=== PATIENT | female | born 1960 | race Caucasian/White ===

== ENCOUNTER → 2020-10-26 | Outpatient (CLI) | payer BC | END | disposition home or self-care (01) | LOC: LABWHC1 14:50 | PROVIDERS: ATTEND Emergency Medicine | DX: Z20.822 Contact with and (suspected) exposure to COVID-19 (principal) | CPT/HCPCS: U0003; U0005 ==

== ENCOUNTER → 2022-03-06 | Outpatient (CLI) | payer BC ==
[2022-03-06 15:17] LABS: Basophils # (A) 0.03 X 10*3/uL (0.00-0.10); Basophils % (A) 0.6 %; Eosinophils # (A) 0.05 X 10*3/uL (0.04-0.35); Eosinophils % (A) 0.9 %; HCT 38.1 % (37.2-46.3); HGB 11.9 g/dL (12.0-15.0); Immature Grans, Automated 0.4 %; Lymphocytes % (A) 31.7 %; MCH 29.5 pg (27.0-32.0); MCHC 31.2 g/dL (32.0-37.0); MCV 94.3 fL (80.0-97.0); NRBC Per 100 WBC 0 /100 WBCS (0.0-0.0); Neutrophils # (A) 2.87 X 10*3/uL (1.80-7.70); Neutrophils % (A) 53.4 %; Platelet Count 282 X 10*3/uL (140-440); RBC 4.04 X 10*6/uL (4.10-5.20); RDW 13.2 % (11.5-14.5); WBC 5.37 X 10*3/uL (4.50-10.00)
[2022-03-06 15:33] LABS: Anion Gap 9.9 mmol/L (10.00-18.00); BUN/Creat Ratio 25.73 Ratio (12.00-20.00); Blood Urea Nitrogen 14.9 mg/dL (9.0-27.0); Calcium 9.1 mg/dL (8.7-10.3); Carbon Dioxide 27.5 mmol/L (20.0-27.5); Potassium 3.8 mmol/L (3.5-5.5)
== END | disposition home or self-care (01) ==
LOC: LABPAT 09:50
PROVIDERS: ATTEND Orthopaedic Surgery
DX: Z01.812 Encounter for preprocedural laboratory examination (principal); M17.11 Unilateral primary osteoarthritis, right knee; Z22.322 Carrier or suspected carrier of Methicillin resistant Staphylococcus aureus
CPT/HCPCS: 80048; 85025; 87070; 93005

== ENCOUNTER 2022-03-19 08:22 | Day surgery (SDC) | payer BC ==
[2022-03-15 11:06] VITALS: BMI 18.3
--- NOTE | 2022-03-18 11:55 | HP ---
HISTORY AND PHYSICAL REASON FOR ADMISSION: Surgery scheduled for 03/19/2022 HISTORY OF PRESENT ILLNESS: Molly Mcnally is a 61-year-old patient seen with symptomatic right knee osteoarthritis. We discussed options for treatment. She elected to proceed with right total knee arthroplasty. Consent obtained. PAST MEDICAL HISTORY: Osteoarthritis. PAST SURGICAL HISTORY: Ankle surgery. DAILY MEDICATIONS: None. ALLERGIES: PENICILLIN. SOCIAL HISTORY: She denies tobacco use. PHYSICAL EVALUATION OF THE RIGHT KNEE: Range of motion is -1/2-115. Mild effusion. Tenderness lateral joint line crepitus, lateral patellofemoral compartments with range of motion. There is some pain with patellofemoral compression. Ligaments stable. Hip rotation without pain. Distal neurovascular exam is intact. RADIOGRAPHS: Radiographs of the right knee revealed severe osteoarthritic changes. IMPRESSION: Right knee osteoarthritis. PLAN: Right total knee arthroplasty. Surgery scheduled for 03/19/2022. MMODL / IJN: [id number] /
[~2022-03-19 08:22] MED LIST: ACETAMINOPHEN TAB 500 MG TAB PO PRN; TRANEXAMIC ACID IN NACL,ISO-OS 1,000 MG in SALINE 1 100ML.BAG IVPB PRN
[2022-03-19 09:01] VITALS: TEMP 97.8
[2022-03-19] MEDS ORDERED: LACTATED RINGERS 1,000 ML IV ONE ×2 (09:04→11:25)
[2022-03-19] MEDS ORDERED: SCOPOLAMINE 1 MG/72 HR PATCH TRANSDERM ONE (09:05)
[2022-03-19] MEDS ORDERED: DEXAMETHASONE SOD PHOSPHATE 4 MG/ML 1 ML VIAL IVP ONE (09:05)
[2022-03-19] MEDS ORDERED: ONDANSETRON 4 MG/2 ML VIAL IVP ONE (09:05)
[2022-03-19] MEDS ORDERED: LIDOCAINE 1% (10MG/ML) FOR IV START INTRADERMA ONE (09:05)
[2022-03-19] MEDS ORDERED: ACETAMINOPHEN TAB 500 MG TAB ONE (09:10)
[2022-03-19] MEDS ORDERED: ONDANSETRON 4 MG/2 ML VIAL ONE (09:10)
[2022-03-19] MEDS ORDERED: MIDAZOLAM 2 MG/2 ML VIAL IVP ONE (09:30)
[2022-03-19] MEDS ORDERED: LIDOCAINE 2% INJ 20 MG/ML (2 ML VIAL) ONE (10:06)
[2022-03-19] MEDS ORDERED: HYDROmorphone (PF) 1 MG/ML ONE (10:06)
[2022-03-19] MEDS ORDERED: fentaNYL (PF) 50 MCG/ML 2 ML AMP ONE (10:06)
[2022-03-19] MEDS ORDERED: TRANEXAMIC ACID IN NACL,ISO-OS 1,000 MG/100 ML BAG ONE (10:06)
[2022-03-19] MEDS ORDERED: MIDAZOLAM 2 MG/2 ML VIAL ONE (10:06)
[2022-03-19] MEDS ORDERED: PROPOFOL 10 MG/ML 20 ML VIAL IV ONE (10:06)
[2022-03-19] MEDS ORDERED: ROPIVACAINE 5 MG/ML 30 ML VIAL ONE (10:06)
--- NOTE | 2022-03-19 10:30 | P.ANPRN ---
Procedure Note - Anesthesia - Nerve Block Performed Right Adductor Canal Infusion Time Out Performed: Yes ([id number]) Date of Procedure: 03/19/22 Procedure Start Time: Procedure Stop Time: :38 Location of Patient: PreOp Indication: Acute Post-Operative Pain, Dx/Pain Location (Rt knee), Requested by Surgeon Specifically requested for management of pain by DrKimmie: Te Rivers Sedation Type: Sedate with meaningful contact maintained Preparation: Sterile Prep, Sterile Dressing Position: Supine Catheter Depth at Skin (cm): 6 Catheter: Indwelling Needle Types: Pajunk Needle Gauge: 18 Ultrasound used to visualize needle placement: Yes Ultrasound used to observe medication spread: Yes Injectate: 0.5% Ropivacaine (see comment for volume) (15 cc) Blood Aspirated: No Pain Paresthesia on Injection Noted: No Resistance on Injection: Normal Image Stored and Saved: Yes Events: Uneventful and Well Tolerated Right iPack Single Time Out Performed: Yes Date of Procedure: 03/19/22 Location of Patient: PreOp Indication: Acute Post-Operative Pain, Dx/Pain Location (Rt Knee) Specifically requested for management of pain by Dr.: Te Rivers Sedation Type: Sedate with meaningful contact maintained Preparation: Sterile Prep Position: Left Lateral Catheter: None Needle Types: Pajunk Needle Gauge: 21 (100 mm) Ultrasound used to visualize needle placement: Yes Ultrasound used to observe medication spread: Yes Injectate: 0.5% Ropivacaine (see comment for volume) (15 cc) Blood Aspirated: No Pain Paresthesia on Injection Noted: No Resistance on Injection: Normal Image Stored and Saved: Yes Events: Uneventful and Well Tolerated
[2022-03-19] MEDS ORDERED: ceFAZolin 1,000 MG in SODIUM CHLORIDE 0.9% 1,000 ML IRRIGATION ONE (10:33)
[2022-03-19 10:39] LABS: INR 0.9 (<1.2); Prothrombin Time 10.2 sec (9.0-12.0)
[2022-03-19] MEDS ORDERED: HYDROmorphone 1 MG/ML 1 ML SYRINGE IVP PRN (11:25)
[2022-03-19] MEDS ORDERED: HYDROcodone/APAP 5-325MG 1 EACH TAB PO PRN (11:25)
[2022-03-19] MEDS ORDERED: ONDANSETRON 4 MG/2 ML VIAL IVP PRN (11:25)
[2022-03-19] MEDS ORDERED: NALOXONE 0.4 MG/ML 1 ML VIAL IV PRN (11:25)
[2022-03-19] MEDS ORDERED: HYDROcodone/APAP 7.5-325MG 1 EACH TAB PO PRN (11:25)
[2022-03-19] MEDS ORDERED: HYDROmorphone 0.5 MG/0.5 ML SYRINGE IVP PRN ×2 (11:25)
--- NOTE | 2022-03-19 11:25 | P.OP ---
Date of Procedure: 03/19/22 Preoperative Diagnosis: Right knee osteoarthritis Postoperative Diagnosis: Right knee osteoarthritis Procedure(s) Performed: Right total knee arthroplasty Implants: 1. Depuy attune size 4 narrow right cruciate retaining cemented femur 2. Depuy attune size 4 fixed bearing cemented tibial baseplate 3. Depuy attune size 4 fixed bearing cruciate retaining 7 mm polyethylene tibial insert 4. Depuy attune 35 mm all polyethylene cemented patella Anesthesia: GETA, regional (Adductor canal catheter, Ipack block) Surgeon: Te Rivers Manager Motor #1: Parminder Moore Estimated Blood Loss (ml): 40 Pathology: other (Bone) Condition: stable Disposition: PACU Indications for Procedure: 61-year-old patient seen with symptomatic right knee osteoarthritis. After treatment options were discussed, she elected to proceed with total knee arthroplasty. Operative Findings: See description of procedure Description of Procedure: Patient was taken to the operative suite after having an adductor canal catheter placed by the department of anesthesia after having an Ipack block performed by the department of anesthesia for postoperative pain management. Patient underwent a general anesthetic by the department of anesthesia. Patient was given preoperative IV intake antibiotics and TXA. A well-padded tourniquet was placed about the right lower extremity. The lower extremity was then prepped and draped in the normal sterile orthopedic fashion. The extremity was elevated, a tourniquet was insufflated to 300. A standard anterior incision was made sharply through skin. Dissection was taken down through the subcutaneous soft tissues down to the extensor mechanism. A medial arthrotomy was performed, patella was everted and knee was flexed. There was advanced osteoarthritis noted. I introduced my distal intramedullary femoral drill. I then introduced the distal femoral cutting jig. oP BROWN secured the cutting jig with 2 pins. I held retractors in position while Po BROWN performed the distal femoral resection through the guide area we now removed her distal femoral cutting guide. We now placed our 4-in-1 femoral cutting block and positioned a nd it was secured with 2 pins by Po BROWN while I held the block in position. The distal femoral finishing was now completed. A proximal tibial cutting guide was positioned. I held the guide in the appropriate position with both hands well Po BROWN inserted stabilizing pins into the guide. Proximal tibial cut was made. We now placed a trial femoral component into position, along with an appropriate size tibial tray and insert. We now took the knee through range of motion and had full extension good flexion and good overall soft tissue balance noted. The patella was everted and stabilized with 2 towel clips held by Po BROWN while I performed a flush with patellar quad tendon utilizing a fresh sawblade. We templated the patella, appropriate drill holes were made. An appropriate trial patella was positioned, knee was taken through full range of motion with the patella tracking very nicely. The trial patella was removed. Drill holes were made through the femoral component. All trial components were removed after marking off the appropriate rotation of the tibia. Retractors were now positioned along the proximal tibia. An appropriate keel punch was made with the appropriate size tibial guide by myself on Po BROWN assisted by holding retractors. At this point appropriate size implants were chosen and opened. The joint was irrigated copiously with pulse lavage mechanical irrigation. The posterior capsule was infiltrated with local analgesic. The wound was irrigated with pulse lavage mechanical irrigation. We mixed antibiotic methylmethacrylate. We placed the knee into flexion. We placed multiple retractors assisted by Po BROWN to expose the proximal tibia. Once the methyl methacrylate was ready, the tibial component was cemented into place removing any excess methylmethacrylate form by both myself and Po BROWN. The femoral component was cemented into place removing the removing any excess methylmethacrylate performed by both myself and Po BROWN. We then inserted the appropriate size polyethylene tibial insert. We made sure that it was locked into position. We took the knee into full extension, and then back in a flexion making sure we had removed any excess methylmethacrylate. The patellar component was then cemented down and secured with clamp. Excess methylmethacrylate removed. We kept the knee in full extension, patellar clamp in position until methylmethacrylate had hardened. Once it had hardened the patellar clamp was removed. The knee was taken through full range of motion. The patella tracked nicely. There was good soft tissue balancing. The tourniquet was now released. Additional hemostasis was achieved via electrocautery. A second gram of TXA was given. The wound again was irrigated with pulse lavage mechanical irrigation. The superficial soft tissues were infiltrated local analgesic. The extensor mechanism was repaired with Ethibond suture. We checked the repair with range of motion and it was stable. The subcutaneous soft tissues were repaired with Vicryl in layers. The skin was approximated with pernio/Dermabond. Sterile dressings were applied followed by loose web roll and Jack bandage. The patient was transferred to a bed, and taken to recovery in stable and satisfactory condition. Po BROWN assisted with this complex procedure.
[2022-03-19] MEDS ORDERED: ROPIVACAINE 0.2%-NS ON-Q PUMP 2 MG/ML EACH MISCELLANE ONE (12:16)
--- NOTE | 2022-03-19 12:17 | XR ---
EXAMINATION TYPE: XR knee limited RT DATE OF EXAM: 03/19/2022 COMPARISON: None HISTORY: Postop knee replacement TECHNIQUE: 2 view right knee FINDINGS: Tibial femoral components in place. No acute fractures or dislocations are evident. Postsur gical changes are within the soft tissues IMPRESSION: 1. No acute fractures post right knee replacement
[2022-03-19] MEDS ORDERED: LABETALOL 5 MG/ML VIAL MDV IVP ONE (12:40)
[2022-03-19] MEDS ORDERED: HYDROmorphone 0.5 MG/0.5 ML SYRINGE IVP ONE ×2 (12:53→13:05)
[2022-03-19] MEDS ORDERED: ROPIVACAINE 0.2%-NS ON-Q PUMP 1,090 MG, EMPTY PAIN BALL 1 EACH MISCELLANE PRN (13:19)
[2022-03-19 13:53] VITALS: RESP 18
[2022-03-19 14:48] VITALS: BP 138/86; PULSE 85
== END 2022-03-19 15:49 | disposition home health service (06) ==
LOC: OR 08:22
PROVIDERS: ATTEND Orthopaedic Surgery
DX: M17.11 Unilateral primary osteoarthritis, right knee (principal); G89.18 Other acute postprocedural pain; M06.9 Rheumatoid arthritis, unspecified; Z88.0 Allergy status to penicillin; Z88.6 Allergy status to analgesic agent; Z88.5 Allergy status to narcotic agent
CPT/HCPCS: 97110; 97161; 64999; 64448; 76942; 85610; 88300; 73560; 27447; C1776; C1713 ×2; J2250; J1100; J0690 ×2; J2405; J3010; J1170 ×2; J2795 ×2; J2704; J2001

== ENCOUNTER 2022-03-21 08:59 | Inpatient (IN) | payer BC ==
--- NOTE | 2022-03-21 09:41 | ED ---
General Adult HPI - General Chief complaint: Skin/Abscess/Foreign Body Stated complaint: blisters on feet Time Seen by Provider: 03/21/22 09:04 Source: patient, RN notes reviewed Mode of arrival: wheelchair Limitations: no limitations - History of Present Illness Initial comments: 61-year-old female presents emergency Department chief complaint of right leg swelling, blistering. Patient states she had right knee replacement 2 days ago. Patient states she went home same day states that she did have a compression sock But has not removed. Patient states she notices blistering she does have pain pump on her right leg. She states the pain is well-controlled. Patient denies any fevers or chills no other complaints. - Related Data Previous Rx's Medication Instructions Recorded Aspirin [Adult Low Dose Aspirin EC] 81 mg PO BID #60 tab 03/19/22 Docusate [Colace] 100 mg PO DAILY #30 capsule 03/19/22 HYDROcodone/APAP [[place] Elixir 15 ml PO Q6HR PRN 7 Days #420 ml 03/19/22 7.5-325Mg/15Ml] ondansetron HCL [Zofran] 8 mg PO Q12HR PRN #12 tab 03/19/22 Cephalexin [Keflex] 500 mg PO Q6HR 7 Days #28 cap 03/21/22 Allergies Allergy/AdvReac Type Severity Reaction Status Date / Time ibuprofen Allergy joint Verified 03/21/22 09:00 swelling Penicillins Allergy Rash/Hives Verified 03/21/22 09:00 hydrocodone AdvReac Nausea & Verified 03/21/22 09:00 Vomiting Review of Systems ROS Statement: Those systems with pertinent positive or pertinent negative responses have been documented in the HPI. ROS Other: All systems not noted in ROS Statement are negative. Past Medical History Past Medical History: Osteoarthritis (OA), Rheumatoid Arthritis (RA) Additional Past Medical History / Comment(s): states "has hole in nose and has freq nose bleeds with prior cauterization in recent past," osteoporosis History of Any Multi-Drug Resistant Organisms: None Reported Past Surgical History: Orthopedic Surgery Additional Past Surgical History / Comment(s): ORIF rt ankle, right total knee replacemnt Past Anesthesia/Blood Transfusion Reactions: No Reported Reaction Additional Past Anesthesia/Blood Transfusion Reaction / Comment(s): no hx blood transfusion Past Psychological History: Anxiety Smoking Status: Never smoker - Past Family History Mother Family Medical History: No Reported History General Exam Limitations: no limitations General appearance: alert, in no apparent distress Head exam: Present: atraumatic, normocephalic, normal inspection Eye exam: Present: normal appearance, PERRL, EOMI. Absent: scleral icterus, conjunctival injection, periorbital swelling Respiratory exam: Present: normal lung sounds bilaterally. Absent: respiratory distress, wheezes, rales, rhonchi, stridor Cardiovascular Exam: Present: regular rate, normal rhythm, normal heart sounds. Absent: systolic murmur, diastolic murmur, rubs, gallop, clicks Extremities exam: Present: other (Right knee there is moderate swelling of the knee, dressing is noted, Jack wrap which appears to be compressive. There is blistering, bullae noted of the lower right leg just superior to the ankle pulses were palpable) Course Vital Signs 03/21/22 09:00 Temperature 98.2 F Pulse Rate 76 Respiratory 18 Rate Blood Pressure 123/76 O2 Sat by Pulse 98 Oximetry - Reevaluation(s) Reevaluation #1: 03/21/22 09:40 Eye medially contact orthopedics on-call abiel moore for Dr. Rivers who evaluated the patient emergency departments recommended THE LEG HE WE'LL PRESCRIBE KEFLEX, DISCUSSED ELEVATION, COMPRESSION AND MOVED UP FOLLOW-UP APPOINTMENT. Medical Decision Making - Medical Decision Making 61-year-old female presented for right leg swelling and pain after surgery. Patient has really DVT I did discuss the case with jane maciel patient be admitted to medicine follow-up with orthopedics. Disposition Clinical Impression: Right leg DVT, S/P total knee arthroplasty Disposition: ADMITTED IP TO THIS HOSP Condition: Fair Additional Instructions: Orthopedic discharge instructions: 1. Elevate the extremity 247 2. Local wound to blisters ankle 3. Utilize compression sleeve to help with swelling 4. Take antibiotic as prescribed 5. Plan for [facility]-up at [facility], contact office with any questions Prescriptions: Cephalexin [Keflex] 500 mg PO Q6HR 7 Days #28 cap Is patient prescribed a controlled substance at d/c from ED?: No Referrals: Parminder Moore PAC [PHYSICIAN CELERY CUTTER] - 1 Week Time of Disposition: 12:28
--- NOTE | 2022-03-21 09:43 | P.CNOR ---
History of Present Illness - [facility] Consult date: 03/21/22 Consult reason: other (Right lower extremity blisters, recent right tka) History of present illness: Patient is a 61-year-old female who had recently undergone a right total knee arthroplasty by Dr. Rivers on 03/19/2022. Patient woke up this morning with significant blistering and foot Shinkle on the right lower extremity. Patient to the emergency room for further evaluation. I was contacted by the emergency room staff. I was able to examine the patient today at bedside in the emergency room. Patient denies any recent trauma or ankle. She states that she has not been elevating extremity very much or using the compression sleeve. The Jack bandage still remains in place over the right lower extremity. The On-Q ball remains in place. Patient denies any fevers or chills at this time. She denies any shortness of breath or chest pain. Home nursing team is scheduled patient later today. Review of Systems Constitutional: Reports as per HPI Past Medical History Past Medical History: Osteoarthritis (OA), Rheumatoid Arthritis (RA) Additional Past Medical History / Comment(s): states "has hole in nose and has freq nose bleeds with prior cauterization in recent past," osteoporosis History of Any Multi-Drug Resistant Organisms: None Reported Past Surgical History: Orthopedic Surgery Additional Past Surgical History / Comment(s): ORIF rt ankle, right total knee replacemnt Past Anesthesia/Blood Transfusion Reactions: No Reported Reaction Additional Past Anesthesia/Blood Transfusion Reaction / Comm: no hx blood transfusion Past Psychological History: Anxiety Smoking Status: Never smoker - Past Family History Mother Family Medical History: No Reported History Medications and Allergies Home Medications Medication Instructions Recorded Confirmed Type Aspirin [Adult Low Dose Aspirin EC] 81 mg PO BID #60 tab 03/19/22 Rx Docusate [Colace] 100 mg PO DAILY #30 capsule 03/19/22 Rx HYDROcodone/APAP [[place] Elixir 15 ml PO Q6HR PRN 7 Days #420 ml 03/19/22 Rx 7.5-325Mg/15Ml] ondansetron HCL [Zofran] 8 mg PO Q12HR PRN #12 tab 03/19/22 Rx Cephalexin [Keflex] 500 mg PO Q6HR 7 Days #28 cap 03/21/22 Rx Allergies Allergy/AdvReac Type Severity Reaction Status Date / Time ibuprofen Allergy joint Verified 03/21/22 09:00 swelling Penicillins Allergy Rash/Hives Verified 03/21/22 09:00 hydrocodone AdvReac Nausea & Verified 03/21/22 09:00 Vomiting Physical Examination Right lower extremity: Jack bandage was removed, the foam dressings in good position and condition. Minimal soft tissue swelling and ecchymosis present surrounding the knee. Anterior posterior compartments of the upper leg are soft near the on q ball pain catheter. Patient has generalized swelling in the lower extremity from the calf down to the foot/ankle. No significant tenderness is reproduced with palpation of the calf. Plantar flexion, dorsiflexion, EHL, FHL are intact. There is blistering noted on the medial and lateral aspects of the ankle near the medial and lateral malleolus. There is no purulence visualized. There is edema noted from the midshaft of the tibia/fibula down to the foot. Dorsalis pedis pulses 2+. Sensory exam to light touch is intact throughout the extremity Assessment and Plan Assessment: Right lower extremity blistering History of recent right total knee arthroplasty Plan: Discussed the case, list included physical exam findings with lengthening Dr. Rivers. No orthopedic intervention is recommended at this time. We will order a Doppler of the right lower extremity to rule out DVT Discussed wound care with patient at bedside, this including general wound care to the areas of blistering. We discussed icing and elevating techniques and use of the compression sleeve. Patient was instructed that if she is not up and moving to be lying flat with the foot elevated above the heart. Patient will continue with the aspirin 81 mg twice a day for DVT prophylaxis Keflex 500 mg 4 times a day for 7 days will be prescribed for prophylactic treatment Home therapy/nursing after discharge Patient was instructed to contact our office today in make an appointment for next week for recheck of the extremity. She was instructed to contact the office if he notices any acute changes to the right lower extremity. Time with Patient: Less than 30
--- NOTE | 2022-03-21 11:00 | US ---
EXAMINATION TYPE: US venous doppler duplex LE RT DATE OF EXAM: 03/21/2022 10:17 AM COMPARISON: NONE CLINICAL HISTORY: pain. Right knee replacement 03-19-22. Edema and pain right leg SIDE PERFORMED: right TECHNIQUE: The right lower extremity deep venous system is examined utilizing real time linear array sonography with graded compression, doppler sonography and color-flow sonography. VESSELS IMAGED: Common Femoral Vein Deep Femoral Vein Greater Saphenous Vein * Femoral Vein Popliteal Vein Small Saphenous Vein * Proximal Calf Veins (* superficial vessels) Right Leg: *positive for DVT right popliteal vein Noncompressibility of the distal right popliteal vein. The remaining veins demonstrate normal aleida sibility with normal flow and vascular waveforms. IMPRESSION: Right popliteal vein deep venous thrombosis. Findings called to and discussed with Dr. El Abdi at 10:57 AM on 03/21/2022.
[2022-03-21] MEDS ORDERED: HEPARIN SODIUM 1,000 UN/ML (10ML VL) IV ONE (12:26)
[2022-03-21] MEDS ORDERED: HEPARIN SODIUM 1,000 UN/ML (10ML VL) IV PRN (12:26)
[2022-03-21] MEDS ORDERED: NALOXONE 0.4 MG/ML 1 ML VIAL IV PRN (12:28)
--- NOTE | 2022-03-21 12:57 | P.HPIM ---
History of Present Illness Chief Complaint: Leg swelling Patient is a 61-year-old female with a past medical history significant for right knee arthroplasty on 03/19/2022 with orthopedic service. Patient presents to the hospital after complaining of right lower extremity swelling and blisters. 2 days. She denies any episodes of shortness of breath, chest pain or palpitations. The pain is currently rated 8 out of 10 and she is also noticed some blistering that has popped which is clear in color. Emergency medicine consult to internal medicine for admission and spoke with orthopedic service. Heparin drip was ordered unfortunately no blood work is available. I recommended to obtain hydration panel, CBC BMP prior to starting the heparin drip. Orthopedic service is aware of this. Past Medical History Past Medical History: Osteoarthritis (OA), Rheumatoid Arthritis (RA) Additional Past Medical History / Comment(s): states "has hole in nose and has freq nose bleeds with prior cauterization in recent past," osteoporosis History of Any Multi-Drug Resistant Organisms: None Reported Past Surgical History: Orthopedic Surgery Additional Past Surgical History / Comment(s): ORIF rt ankle, right total knee replacemnt Past Anesthesia/Blood Transfusion Reactions: No Reported Reaction Additional Past Anesthesia/Blood Transfusion Reaction / Comment(s): no hx blood transfusion Past Psychological History: Anxiety Smoking Status: Never smoker - Past Family History Mother Family Medical History: No Reported History Medications and Allergies Home Medications Medication Instructions Recorded Confirmed Type Aspirin [Adult Low Dose Aspirin EC] 81 mg PO BID #60 tab 03/19/22 Rx Docusate [Colace] 100 mg PO DAILY #30 capsule 03/19/22 Rx HYDROcodone/APAP [[place] Elixir 15 ml PO Q6HR PRN 7 Days #420 ml 03/19/22 Rx 7.5-325Mg/15Ml] ondansetron HCL [Zofran] 8 mg PO Q12HR PRN #12 tab 03/19/22 Rx Cephalexin [Keflex] 500 mg PO Q6HR 7 Days #28 cap 03/21/22 Rx Allergies Allergy/AdvReac Type Severity Reaction Status Date / Time ibuprofen Allergy joint Verified 03/21/22 09:00 swelling Penicillins Allergy Rash/Hives Verified 03/21/22 09:00 hydrocodone AdvReac Nausea & Verified 03/21/22 09:00 Vomiting Physical Exam Vitals: Vital Signs Temp Pulse Resp BP Pulse Ox 03/21/22 09:00 98.2 F 76 18 123/76 98 Intake and Output 03/20/22 03/21/22 03/21/22 22:59 06:59 14:59 Other: Weight 48.081 kg Gen. patient is awake alert oriented 3 Heart normal S1/S2 no murmurs Respiratory no wheezing or rhonchi appreciated Abdomen soft, nontender Extremity swelling noted in the right lower extremity with blisters in the medial aspect mainly few have ruptured clear Psych in good spirits Assessment and Plan Assessment: Assessment: #1 right lower extremity DVT provoked secondary to surgery #2 history of right knee arthroplasty 03/19/2022 Plan: -Patient admitted to medicine for close monitoring -Orthopedic service aware of the admission recommend internal medicine admission -No blood work available including CBC, Coreg ablation panel or BMP. Recommend obtaining this prior to starting heparin which has been ordered by ER -Right lower extremity Doppler reviewed suggesting right popliteal vein DVT -Due to prophylaxis patient will be started on heparin drip -Further recommendations from consulting team.
[2022-03-21 13:09] LABS: Basophils % (A) 0 %; Eosinophils % (A) 0 %; HCT 31.1 % (34.0-46.0); HGB 10.3 gm/dL (11.4-16.0); Lymphocytes # (A) 1.4 k/uL (1.0-4.8); Lymphocytes % (A) 15 %; MCH 31.4 pg (25.0-35.0); MCHC 33.1 g/dL (31.0-37.0); MCV 94.9 fL (80.0-100.0); Mean Platelet Volume 8.1; Monocytes # (A) 0.5 k/uL (0-1.0); Monocytes % (A) 6 %; Neutrophils # (A) 7.1 k/uL (1.3-7.7); Neutrophils % (A) 77 %; Platelet Count 172 k/uL (150-450); RBC 3.28 m/uL (3.80-5.40); RDW 13.2 % (11.5-15.5); WBC 9.2 k/uL (3.8-10.6)
[2022-03-21 13:28] LABS: ALT 12 U/L (4-34); AST 22 U/L (14-36); African American GFR (CKD) >90 (>60 ml/min/1.73 sqM); Albumin 3.6 g/dL (3.5-5.0); Alkaline Phosphatase 81 U/L (38-126); Anion Gap 6 mmol/L; Blood Urea Nitrogen 15 mg/dL (7-17); Calcium 8.1 mg/dL (8.4-10.2); Carbon Dioxide 27 mmol/L (22-30); Chloride 104 mmol/L (98-107); Glucose 105 mg/dL (74-99); Non-African American GFR(CKD) >90 (>60 ml/min/1.73 sqM); Potassium 3.8 mmol/L (3.5-5.1); Sodium 137 mmol/L (137-145); Total Bilirubin 0.7 mg/dL (0.2-1.3); Total Protein 6.3 g/dL (6.3-8.2)
[2022-03-21 13:41] LABS: INR 0.9 (<1.2); Prothrombin Time 9.6 sec (9.0-12.0)
[2022-03-21 14:06] LABS: Partial Thromboplastin Time 19.7 sec (22.0-30.0)
[2022-03-21] MEDS: HEPARIN SOD,PORK IN 0.45% NACL 25,000 UNIT in 0.45% NACL 1 250ML.BAG IV SCH (14:31)
[2022-03-21] MEDS: MORPHINE SULFATE 2 MG/ML SYRINGE IVP PRN ×2 (15:24→20:59)
[2022-03-22] MEDS: MORPHINE SULFATE 2 MG/ML SYRINGE IVP PRN ×2 (00:56→07:25)
[2022-03-22] MEDS: HYDROcodone/APAP 15 ML SOLUTION PO PRN ×2 (09:04→15:01)
[2022-03-22] MEDS ORDERED: MORPHINE SULFATE 2 MG/ML SYRINGE IVP PRN (09:08)
[2022-03-22 09:10] LABS: Basophils # (A) 0.03 X 10*3/uL (0.00-0.10); Basophils % (A) 0.3 %; Eosinophils # (A) 0.01 X 10*3/uL (0.04-0.35); Eosinophils % (A) 0.1 %; HCT 27.6 % (37.2-46.3); HGB 8.6 g/dL (12.0-15.0); Immature Grans, Automated 0.7 %; Lymphocytes # (A) 1.77 X 10*3/uL (0.90-5.00); Lymphocytes % (A) 18.3 %; MCH 29.5 pg (27.0-32.0); MCHC 31.2 g/dL (32.0-37.0); MCV 94.5 fL (80.0-97.0); Mean Platelet Volume 10.8 fL (9.5-12.2); Monocytes # (A) 0.92 X 10*3/uL (0.20-1.00); Monocytes % (A) 9.5 %; NRBC Per 100 WBC 0 /100 WBCS (0.0-0.0); Neutrophils # (A) 6.89 X 10*3/uL (1.80-7.70); Neutrophils % (A) 71.1 %; Platelet Count 170 X 10*3/uL (140-440); RBC 2.92 X 10*6/uL (4.10-5.20); RDW 13.1 % (11.5-14.5); WBC 9.69 X 10*3/uL (4.50-10.00)
--- NOTE | 2022-03-22 09:11 | P.PN ---
Subjective Patient was examined at bedside continues complain of intractable pain currently rates it a 10 out of 10. Patient also does have a emergent blister in the right lower extremity specifically on the medial aspect extending over to the lateral malleolus area. Patient denies any episodes of fever, chills, nausea or vomiting. Case discussed with RN present at bedside pending further evaluation by orthopedic service. Objective - Vital Signs Vital signs: Vital Signs Temp 98.5 F 03/22/22 08:00 Pulse 80 03/22/22 08:00 Resp 18 03/22/22 08:00 BP 151/74 03/22/22 08:00 Pulse Ox 97 03/22/22 08:00 FiO2 Intake & Output 03/21/22 03/22/22 03/22/22 18:59 06:59 18:59 Intake Total 540 Balance 540 Weight 48.081 kg Intake: Oral 540 Other: Voiding Method Toilet # Voids 2 1 - Exam Gen. patient is awake alert oriented 3 Heart normal S1/S2 no murmurs Respiratory no wheezing or rhonchi appreciated Abdomen soft, nontender Extremity swelling noted in the right lower extremity with blisters in the medial aspect mainly few have ruptured clear -There is a standing blister from the medial malleolus to the lateral enlarging in size not ruptured Psych in good spirits - Labs CBC & Chem 7: 03/21/22 12:55 03/21/22 12:55 Labs: Abnormal Lab Results - Last 24 Hours (Table) 03/21/22 03/21/22 03/21/22 Range/Units 12:55 12:55 12:55 RBC 3.28 L (3.80-5.40) m/uL Hgb 10.3 L (11.4-16.0) gm/dL Hct 31.1 L (34.0-46.0) % APTT 19.7 L (22.0-30.0) sec Creatinine 0.42 L (0.52-1.04) mg/dL Glucose 105 H (74-99) mg/dL Calcium 8.1 L (8.4-10.2) mg/dL 03/21/22 03/22/22 Range/Units 18:38 03:17 RBC (3.80-5.40) m/uL Hgb (11.4-16.0) gm/dL Hct (34.0-46.0) % APTT 56.1 H 46.1 H (22.0-30.0) sec Creatinine (0.52-1.04) mg/dL Glucose (74-99) mg/dL Calcium (8.4-10.2) mg/dL Assessment and Plan Assessment: Assessment: #1 right lower extremity DVT provoked secondary to surgery #2 history of right knee arthroplasty 03/19/2022 Plan: -Patient admitted to medicine for close monitoring -Orthopedic service aware of the admission recommend internal medicine admission -CBC BMP reviewed. -Right lower extremity Doppler reviewed suggesting right popliteal vein DVT -Continue with heparin drip for now and transition to by mouth anticoagulation on discharge. -Pain control increase morphine to 2 mg and [place] per orthopedic started. -Dvt prophylaxis patient will be started on heparin drip -Further recommendations from consulting team.
[2022-03-22 09:49] LABS: African American GFR (CKD) 124.9 (60.0-200.0); Anion Gap 11.7 mmol/L (10.00-18.00); BUN/Creat Ratio 23.16 Ratio (12.00-20.00); Calcium 7.8 mg/dL (8.7-10.3); Carbon Dioxide 22.8 mmol/L (20.0-27.5); Non-African American GFR(CKD) 107.7 (60.0-200.0); Potassium 3.6 mmol/L (3.5-5.5)
--- NOTE | 2022-03-22 10:22 | P.PN ---
Subjective Progress Note Date: 03/22/22 Principal diagnosis: Status post right total knee arthroplasty, DVT right lower extremity Patient was evaluated today at bedside, she is resting in her hospital bed. She is having quite a bit of pain today. The [place] 7.5 mg elixir has been restarted, she's also utilizing IV pain medication as needed. She states blisters on the medial and lateral aspects of the ankle have gotten a lot bigger overnight. She denies any headaches, lightheadedness, chest pain or shortness of breath. Objective - Vital Signs Vital signs: Vital Signs Temp 98.5 F 03/22/22 08:00 Pulse 80 03/22/22 08:00 Resp 18 03/22/22 08:00 BP 151/74 03/22/22 08:00 Pulse Ox 97 03/22/22 08:00 FiO2 Intake & Output 03/21/22 03/22/22 03/22/22 18:59 06:59 18:59 Intake Total 540 Balance 540 Weight 48.081 kg Intake: Oral 540 Other: Voiding Method Toilet # Voids 2 1 - Exam Right lower extremity: Foam dressing is in good position and condition, no active drainage. There is some ecchymosis and soft tissue swelling present on the lateral and medial aspects of the incision. Notable swelling in the lower extremity, along with ecchymosis in the foot/ankle. 2 large fluid-filled blisters are present on the medial and lateral ankle. Calf is soft, no tenderness with palpation. Plantar flexion, dorsiflexion, EHL, FHL are intact. Dorsalis pedis pulses 2+. - Labs CBC & Chem 7: 03/22/22 03:17 03/22/22 03:17 Labs: Abnormal Lab Results - Last 24 Hours (Table) 03/21/22 03/21/22 03/21/22 Range/Units 12:55 12:55 12:55 RBC 3.28 L (3.80-5.40) m/uL Hgb 10.3 L (11.4-16.0) gm/dL Hct 31.1 L (34.0-46.0) % MCHC (32.0-37.0) g/dL Immature Gran # (0.00-0.04) X 10*3/uL Eosinophils # (0.04-0.35) X 10*3/uL APTT 19.7 L (22.0-30.0) sec Creatinine 0.42 L (0.52-1.04) mg/dL BUN/Creatinine Ratio (12.00-20.00) Ratio Glucose 105 H (74-99) mg/dL Calcium 8.1 L (8.4-10.2) mg/dL 03/21/22 03/22/22 03/22/22 Range/Units 18:38 03:17 03:17 RBC 2.92 L (3.80-5.40) m/uL Hgb 8.6 L (11.4-16.0) gm/dL Hct 27.6 L (34.0-46.0) % MCHC 31.2 L (32.0-37.0) g/dL Immature Gran # 0.07 H (0.00-0.04) X 10*3/uL Eosinophils # 0.01 L (0.04-0.35) X 10*3/uL APTT 56.1 H 46.1 H (22.0-30.0) sec Creatinine (0.52-1.04) mg/dL BUN/Creatinine Ratio (12.00-20.00) Ratio Glucose (74-99) mg/dL Calcium (8.4-10.2) mg/dL 03/22/22 Range/Units 03:17 RBC (3.80-5.40) m/uL Hgb (11.4-16.0) gm/dL Hct (34.0-46.0) % MCHC (32.0-37.0) g/dL Immature Gran # (0.00-0.04) X 10*3/uL Eosinophils # (0.04-0.35) X 10*3/uL APTT (22.0-30.0) sec Creatinine 0.5 L (0.52-1.04) mg/dL BUN/Creatinine Ratio 23.16 H (12.00-20.00) Ratio Glucose 127 H (74-99) mg/dL Calcium 7.8 L (8.4-10.2) mg/dL Assessment and Plan Assessment: Right lower extremity blistering Right lower extremity DVT Postoperative day #3 status post right total knee arthroplasty Plan: Pain control, continue with the [place] elixir. Discuss the patient to try to avoid IV narcotics DVT prophylaxis, patient will remain on heparin drip while inpatient. Transi tioning to Eliquis 10mg bid for 7 days, then 5mg bid at discharge. Patient will follow up with her primary care doctor regarding continuation of treatment after discharge Blisters were assessed today bedside, a sterile needle was used to drain both medial and lateral blister. And the ointment was applied with sterile dressing at bedside. Icing and elevating techniques were discussed Weight-bear as tolerated with walker Medical recommendations Discharge planning: Planning for discharge on 03/23/2022 Time with Patient: Less than 30
[2022-03-22] MEDS: HEPARIN SOD,PORK IN 0.45% NACL 25,000 UNIT in 0.45% NACL 1 250ML.BAG IV SCH (15:01)
[2022-03-23] MEDS: HYDROcodone/APAP 15 ML SOLUTION PO PRN ×3 (03:23→17:04)
[2022-03-23 09:20] LABS: Basophils # (A) 0.03 X 10*3/uL (0.00-0.10); Basophils % (A) 0.4 %; Eosinophils # (A) 0.06 X 10*3/uL (0.04-0.35); Eosinophils % (A) 0.7 %; HCT 25.9 % (37.2-46.3); Lymphocytes # (A) 1.77 X 10*3/uL (0.90-5.00); Lymphocytes % (A) 21.8 %; MCH 29.1 pg (27.0-32.0); MCHC 30.9 g/dL (32.0-37.0); MCV 94.2 fL (80.0-97.0); Mean Platelet Volume 10.6 fL (9.5-12.2); Monocytes # (A) 0.82 X 10*3/uL (0.20-1.00); Monocytes % (A) 10.1 %; NRBC Per 100 WBC 0 /100 WBCS (0.0-0.0); Neutrophils # (A) 5.36 X 10*3/uL (1.80-7.70); Platelet Count 206 X 10*3/uL (140-440); RBC 2.75 X 10*6/uL (4.10-5.20); RDW 12.9 % (11.5-14.5); WBC 8.12 X 10*3/uL (4.50-10.00)
[2022-03-23] MEDS ORDERED: APIXABAN 5 MG TAB PO SCH (10:00)
--- NOTE | 2022-03-23 10:14 | P.PN ---
Subjective Progress Note Date: 03/23/22 Principal diagnosis: Right knee osteoarthritis Right lower extremity blistering Patient was seen at bedside this morning sitting up in chair with right lower extremity elevated and Jack bandage and dressing present on right ankle. Patient says she has been up and walking around the room okay. Patient has been getting [place] Elixir 7.5 mg. Patient says her right ankle is feeling a little better since the blisters were drained yesterday. Patient also mentions her right knee is doing better as well. Patient is wondering when she will be able to go home. Patient is currently on heparin drip and antibiotics. Patient denies chest pain, fever, shortness breath, nausea, vomiting, change in vision, loss of bowel/bladder control Objective - Vital Signs Vital signs: Vital Signs Temp 98.4 F 03/23/22 01:08 Pulse 89 03/23/22 01:08 Resp 15 03/23/22 08:09 BP 133/73 03/23/22 01:08 Pulse Ox 97 03/23/22 01:08 FiO2 Intake & Output 03/22/22 03/23/22 03/23/22 18:59 06:59 18:59 Intake Total 212.048 117.708 Balance 212.048 117.708 Intake: Intake, IV Titration 212.048 117.708 Amount Heparin Sod,Pork in 0.45% 212.048 117.708 NaCl 25,000 unit In 0.45 % NaCl 1 250ml.bag @ 18 UNITS/KG/HR 8.655 mls/hr IV .Q24H [facility] Rx#: [id number] Other: Voiding Method Toilet Toilet Toilet # Voids 4 2 - Exam Right lower extremity appears swollen with moderate edema in the right foot. There is some ecchymosis present around the right knee and right calf. Dressing on right ankle was taken down. Areas on the medial and lateral malleolus appear pink in color. There is no active drainage. Incision on the right knee appears clean, dry, intact at this time. Silver foam dressing is intact on right knee. Sensation is equal, symmetric, by intact throughout the lower extremities. There is some tenderness to palpation along the area where the blisters were on the medial and lateral malleolus on the RLE. DP pulses are intact bilaterally. Patient is able to elevate right leg off of chair. - Labs CBC & Chem 7: 03/23/22 03:09 03/22/22 03:17 Labs: Abnormal Lab Results - Last 24 Hours (Table) 03/23/22 03/23/22 Range/Units 03:09 03:09 RBC 2.75 L (4.10-5.20) X 10*6/uL Hgb 8.0 L (12.0-15.0) g/dL Hct 25.9 L (37.2-46.3) % MCHC 30.9 L (32.0-37.0) g/dL Immature Gran # 0.08 H (0.00-0.04) X 10*3/uL APTT 39.9 H (22.0-30.0) sec Assessment and Plan Assessment: 1. Right knee osteoarthritis Postoperative day 4 status post right total knee arthroplasty 2. DVT RLE 3. Right ankle blistering Plan: 1. Right knee osteoarthritis; right lower extremity DVT; right lower extremity blistering - right total knee arthroplasty performed on 03/19/2022. Patient stable at bedside this morning sitting up in chair elevating right lower extremity. Venous Doppler of the right lower extremity came back positive for DVT. Patient has been started on heparin drip. Dressing on right ankle has been changed. There is no active drainage from ankle. Patient has been prescribed course of oral antibiotics for home. recommend daily dressings of right ankle once home. From an orthopedic standpoint, patient is stable for discharge home. Orthopedic is signing off at this time. Please do not hesitate to contact us for any further questions 2. Appreciate medical management 3. Pain management - [place] 4. DVT prophylaxis - on heparin currently. Once patient is discharged home, patient is to take Eliquis starter pack. 5. GI prophylaxis - Colace 6. PT/OT - WBAT w/walker 7. Encourage incentive spirometer use 8. Discharge planning - discharge home with health services. Time with Patient: Less than 30
--- NOTE | 2022-03-23 11:43 | P.DS ---
Providers Date of admission: 03/21/22 12:34 Expected date of discharge: 03/23/22 Attending physician: Lorri Sheppard MD Consults: 03/21/22 12:28 Consult Physician Urgent Consulting Provider: Te Rivers Consult Reason/Comments: s/p right TKA Do you want consulting provider notified?: Already Contacted Primary care physician: [facility] Course: Discharge Diagnosis: Right Popliteal DVT, Provoked Recetent R TKA Acute blood loss anemia Hospital Course: Patient is a 61-year-old female with osteoarthritis, rheumatoid arthritis, and recent right TKA on 03/19/22 who presented to the ER with right lower extremity swellling and blisters. She was found to have a Right popliteal DVT. He was s tarted on a heprin gtt and admitted for further monitoring. She was seen by ortho and her blister were lanced. We discussed that her swelling will likely perisist for several week and that she can apply a loose ABHILASH wrap at this time but no compression stocking for the first 10 days, will use looser ABHILASH wrap to help. She will follow with her PCP next week. We did discuss that she will need anticoagulation for 3 months. Patient seen and examined at bedside. Reports some pain due to swelling. No chest pain or shortness of breath. Has some burning with dressing changes. All questions answered instruction given as listed above. Vital signs reviewed and stable. General: nontoxic, no distress, appears at stated age Derm: warm, dry Head: atraumatic, normocephalic, symmetric Eyes: EOMI, no lid lag, anicteric sclera Mouth: no lip lesion, mucus membranes moist Cardiovascular: S1S2 reg, no murmur, positive posterior tibial pulse bilateral, Lungs: CTA bilateral, no rhonchi, no rales , no accessory muscle use Ext: no gross muscle atrophy, R> L lower extremity edema with ruising and ecchymosis, dressing intact over knee and ankle Neuro: CN II-XI grossly intact, no focal neuro deficits Psych: Alert, oriented, appropriate affect A total of 33 minutes of time were spent preparing this complex discharge summary. Patient was discharged on 03/23/22. Patient Condition at Discharge: Fair Plan - Discharge Summary Discharge Rx Participant: Yes New Discharge Prescriptions: New Cephalexin [Keflex] 500 mg PO Q6HR 7 Days #28 cap Apixaban [Eliquis Starter Pack (for VTE)] 5 - 10 mg PO DIRECTED 30 Days #1 each Continue Docusate [Colace] 100 mg PO DAILY #30 capsule HYDROcodone/APAP [[place] Elixir 7.5-325Mg/15Ml] 15 ml PO Q6HR PRN 7 Days #420 ml PRN Reason: Pain ondansetron HCL [Zofran] 8 mg PO Q12HR PRN #12 tab PRN Reason: Nausea Discontinued Aspirin [Adult Low Dose Aspirin EC] 81 mg PO BID #60 tab Discharge Medication List Docusate [Colace] 100 mg PO DAILY #30 capsule 03/19/22 [Rx] HYDROcodone/APAP [[place] Elixir 7.5-325Mg/15Ml] 15 ml PO Q6HR PRN 7 Days #420 ml 03/19/22 [Rx] ondansetron HCL [Zofran] 8 mg PO Q12HR PRN #12 tab 03/19/22 [Rx] Cephalexin [Keflex] 500 mg PO Q6HR 7 Days #28 cap 03/21/22 [Rx] Apixaban [Eliquis Starter Pack (for VTE)] 5 - 10 mg PO DIRECTED 30 Days #1 each 03/23/22 [Rx] Follow up Appointment(s)/Referral(s): Brunilda Fox MD [Primary Care Provider] - 1 Week Parminder Moore PAC [PHYSICIAN LEADERSHIP DEVELOPMENT CONSULTANT] - 1 Week Ambulatory/Diagnostic Orders: Complete Blood Count w/diff [LAB.AMB] Time Frame: 3 Days, Location: None Selected Activity/Diet/Wound Care/Special Instructions: Orthopedic discharge instructions: 1. Elevate the extremity 247 2. Local wound care to blisters ankle 3. Utilize compression sleeve to help with swelling, after 10 days before please use ABHILASH wrap 4. Take antibiotic as prescribed 5. Plan [facility], contact office with any questions Please have lab work done in 3-5 days. Discharge Disposition: HOME WITH HOME HEALTH SERVICES
[2022-03-23 16:47] VITALS: BP 136/73; PULSE 91; RESP 16; TEMP 98.3
== END 2022-03-23 17:30 | disposition home health service (06) | DRG 560 ==
LOC: EC 08:59 → 4SSUR 12:34
PROVIDERS: ADMIT Internal Medicine; ATTEND Internal Medicine
DX: T84.86XA Thrombosis due to internal orthopedic prosthetic devices, implants and grafts, initial encounter (principal); D62 Acute posthemorrhagic anemia; I82.431 Acute embolism and thrombosis of right popliteal vein; Z96.651 Presence of right artificial knee joint; Z28.310 Unvaccinated for COVID-19; Z28.21 Immunization not carried out because of patient refusal; F41.9 Anxiety disorder, unspecified; M06.9 Rheumatoid arthritis, unspecified; M17.11 Unilateral primary osteoarthritis, right knee; M81.0 Age-related osteoporosis without current pathological fracture; S90.821A Blister (nonthermal), right foot, initial encounter; S90.822A Blister (nonthermal), left foot, initial encounter; Z79.82 Long term (current) use of aspirin; Z88.6 Allergy status to analgesic agent; Z88.5 Allergy status to narcotic agent; Z88.0 Allergy status to penicillin
CPT/HCPCS: 80048; 80053; 85025; 85610; 85730; 96365; 96366; 96375; 99285